=== PATIENT | female | born 1950 | race Caucasian/White ===

== ENCOUNTER → 2017-11-11 | Outpatient (CLI) | payer BC | END | disposition home or self-care (01) | LOC: KCIC 12:21 | DX: M47.892 Other spondylosis, cervical region (principal); M48.02 Spinal stenosis, cervical region | CPT/HCPCS: 72040 ==

== ENCOUNTER → 2018-05-01 | Day surgery (SDC) | payer BC ==
[~2018-05-01] MED LIST: AMLO5TAB2 PO; ATOR40TA59 PO; BUDE10.2 IH; CARV25TA2 PO; CITA20TA6 PO; IV RINGERS,LACTATED 1000ML 1,000 ML IV SCH; LIDOCAINE 2% PF Vial for OR 5 ML VIAL. ONE; LISI-334 PO; PROAIR HFA8.5 GM INH; PROPOFOL 0 ML IV ONE; PROPOFOL 40 ML IV ONE; ePHEDrine PF IN SALINE 50 MG/5 ML DISP.SYRIN IV ONE
[2018-05-01 13:29] VITALS: BP 153/68
--- NOTE | 2018-05-05 15:08 | PATHOLOGY ---
[facility] Accession Number: [id number] . 01 Material submitted: . SIGMOID POLYP . 01 Clinical history: . Screening . 02 Diagnosis: Colon biopsy, sigmoid polyp: - Tubular adenoma with focal serrated features. [facility]/05/02/2018 . 02 Comment: There is no evidence of high grade dysplasia or malignancy. (JPM/db; 05/02/18) . 02 Electronically signed: . Rip Garcia MD, Pathologist NPI- [id number] . 01 Gross description: . Received in formalin labeled "Brown, Sophia, sigmoid polyp," is a single segment of colvin soft tissue measuring 0.6 cm in maximum dimension. The specimen is entirely submitted in cassette A1. (TSD; 05/01/2018) TOB/TOB . 02 Pathologist provided ICD-10: D12.5 . 02 CPT . 717000 Performed at: 01 [facility] [address], [place] [id number] MD Singh Aldridge MD Phone: [phone] Performed at: 02 [facility] [address], [place] [id number] MD Rip Garcia MD Phone: [phone]
== END | disposition home or self-care (01) ==
LOC: ENDOS 10:57
PROVIDERS: ATTEND Internal Medicine Gastroenterology
DX: Z12.11 Encounter for screening for malignant neoplasm of colon (principal); D12.5 Benign neoplasm of sigmoid colon; F17.210 Nicotine dependence, cigarettes, uncomplicated; M19.90 Unspecified osteoarthritis, unspecified site; J44.9 Chronic obstructive pulmonary disease, unspecified; I10 Essential (primary) hypertension; E78.00 Pure hypercholesterolemia, unspecified; Z79.899 Other long term (current) drug therapy; Z90.11 Acquired absence of right breast and nipple; Z98.890 Other specified postprocedural states
CPT/HCPCS: 45385; 88305; J2001; J2704; 45380

== ENCOUNTER → 2020-04-08 | Outpatient (CLI) | payer MEDICARE ==
[2018-05-01 13:29] VITALS: BP 153/68
[~2020-04-08] MED LIST changes: +ALBU2.5V8 INH; +AMLO5TAB10 PO; -AMLO5TAB2 PO; -IV RINGERS,LACTATED 1000ML 1,000 ML IV SCH; -LIDOCAINE 2% PF Vial for OR 5 ML VIAL. ONE; -PROAIR HFA8.5 GM INH; -PROPOFOL 0 ML IV ONE; -PROPOFOL 40 ML IV ONE; -ePHEDrine PF IN SALINE 50 MG/5 ML DISP.SYRIN IV ONE
--- NOTE | 2020-04-08 11:37 | CARD ---
MR#: [id number] Date of Study: 04/08/2020 Ordering Physician: MONA HILL, Referring Physician: MONA HILL, Tech: Disha West ROWENA APPROVED REPORT EXAM: Two-dimensional and M-mode echocardiogram with Doppler and color Doppler. Other Information Quality : Good INDICATION Murmur 2D DIMENSIONS RVDd3.0 (2.9-3.5cm)Left Atrium(2D)3.6 (1.6-4.0cm) IVSd1.1 (0.7-1.1cm)Aortic Root(2D)2.8 (2.0-3.7cm) LVDd3.4 (3.9-5.9cm)LVOT Diameter1.8 (1.8-2.4cm) PWd1.1 (0.7-1.1cm)LVDs2.3 (2.5-4.0cm) FS (%) 33.0 %SV29.7 ml LVEF(%)62.7 (>50%) Aortic Valve AoV Peak Kraig.177.2cm/sAoV VTI42.3cm AO Peak GR.12.6mmHgLVOT Peak Kraig.181.3cm/s AO Mean GR.8mmHgAVA (VMAX)2.53cm2 KAREEN (VTI)2.20cm2 Mitral Valve MV E Xcpskrcc71.6cm/sMV DECEL [id number] MV A Tfywsros995.2cm/sE/A Ratio0.7 Tricuspid Valve TR P. Ypfovenp496mc/sRAP LVEPBOPE5ncHg TR Peak Gr.80ooGzMFLI02uvKh Pulmonary Vein S1 Zbqkcjmn22.6cm/sD2 Rozleiqo50.4cm/s LEFT VENTRICLE The left ventricle is normal size. There is mild to moderate septal hypertrophy The left ventricular systolic function is normal and the ejection fraction is within normal range. The Ejection Fraction i s 60-65%. There is normal LV segmental wall motion. Transmitral Doppler flow pattern is Grade I-abnor mal relaxation pattern. RIGHT VENTRICLE The right ventricle is normal size. The right ventricular systolic function is normal. ATRIA The left atrium size is normal. The right atrium size is normal. The interatrial septum is intact wit h no evidence for an atrial septal defect or patent foramen ovale as noted on 2-D or Doppler imaging. AORTIC VALVE The aortic valve is calcified but opens well. Doppler and Color Flow revealed no significant aortic r egurgitation. There is no significant aortic valvular stenosis. There is an outflow tract obstruction due to a interventricular septum hypertrophy measuring 44 mmHg. MITRAL VALVE The mitral valve is normal in structure and function. There is no evidence of mitral valve prolapse. There is no mitral valve stenosis. Doppler and Color-flow revealed mild mitral regurgitation. TRICUSPID VALVE The tricuspid valve is normal in structure and function. Doppler and Color Flow revealed mild tricusp id regurgitation. There is mild pulmonary hypertension. The PA pressure was estimated at 36 mmHg. The re is no tricuspid valve stenosis. PULMONIC VALVE The pulmonic valve is not well visualized. Doppler and Color Flow revealed trace pulmonic valvular re gurgitation. There is no pulmonic valvular stenosis. GREAT VESSELS The aortic root is normal in size. The ascending aorta is not well seen. The IVC is normal in size an d collapses >50% with inspiration. PERICARDIAL EFFUSION There is no evidence of significant pericardial effusion. Critical Notification Critical Value: No <Conclusion> The left ventricle is normal size. The left ventricular systolic function is normal and the ejection fraction is within normal range. The Ejection Fraction is 60-65%. There is mild to moderate septal hypertrophy Doppler and Color Flow revealed no significant aortic regurgitation. There is no significant aortic valvular stenosis. There is an outflow tract obstruction due to a int erventricular septum hypertrophy measuring 44 mmHg. Doppler and Color-flow revealed mild mitral regurgitation. Doppler and Color Flow revealed mild tricuspid regurgitation. There is mild pulmonary hypertension. The PA pressure was estimated at 36 mmHg. Signed by : Mona Hlil MD Electronically Approved : 04/08/2020 11:37:06
--- NOTE | 2020-04-08 18:02 | RAD ---
MR#: [id number] Date of Study: 04/08/2020 Ordering Physician: MONA CHRIS, Referring Physician: MONA CHRIS, Tech: Kofi Mcmullen RDMS, RVT APPROVED REPORT Patient Location: OUT-PATIENT Laterality:Bilateral Indications Bruit Risk Factors Hypertension: Hyperlipidemia Smoking Doppler Spectral Velocity Analysis Right Left pCCA 80/12 cm/spCCA 99/19 cm/s mCCA 90/13 cm/smCCA 103/15 cm/s dCCA 79/13 cm/sdCCA 97/19 cm/s Bulb 73/14 cm/sBulb 99/20 cm/s ECA 134/ cm/sECA 125/ cm/s pICA 68/19 cm/spICA 96/17 cm/s Rosalba 86/22 cm/smICA 95/22 cm/s dICA 99/25 cm/sdICA 96/23 cm/s Vert. 140/ cm/sVert. 49/ cm/s ICA/CCA 1.10ICA/CCA 0.97 Findings Grayscale images of the bilateral carotid vessels demonstrates mild intimal hyperplasia and mild diff use atherosclerosis. Based on velocity criteria overall 0 to less than 50% stenosis. Normal ICA to CCA ratios bilaterally . Antegrade vertebral velocities bilaterally. Cannot rule out a moderate stenosis of the right vert ebral artery. Critical Notification Critical Value: No <Conclusion> 1. No significant carotid occlusive disease bilaterally. 2. 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 Signed by : Edgar Styles, Electronically Approved : 04/08/2020 18:01:53
== END | disposition home or self-care (01) ==
LOC: US 09:28
PROVIDERS: ATTEND Internal Medicine Cardiovascular Disease
DX: I08.1 Rheumatic disorders of both mitral and tricuspid valves (principal); R09.89 Other specified symptoms and signs involving the circulatory and respiratory systems; I27.20 Pulmonary hypertension, unspecified; I65.01 Occlusion and stenosis of right vertebral artery; I77.89 Other specified disorders of arteries and arterioles
CPT/HCPCS: 93306; 93880